=== PATIENT | female | born 1985 | race Two or more races ===

== ENCOUNTER 2020-05-29 12:58 | Inpatient (IN) | payer OTHER ==
[~2020-05-29] VITALS: Ht 165.1 cm; Wt 76.8 kg
[2020-05-29] MEDS ORDERED: NEWBORN KIT ONE (13:18)
[2020-05-29] MEDS ORDERED: MISOPROSTOL 200 MCG TABLET ONE (13:18)
[2020-05-29] MEDS ORDERED: LIDOCAINE 1%, 20ML ONE (13:18)
[2020-05-29] MEDS ORDERED: FENTANYL PF 100 MCG/2ML ONE ×2 (13:18→14:25)
[2020-05-29] MEDS ORDERED: OXYTOCIN 30U/ 0.9% NaCL 500ML 500 ML ONE ×2 (13:19→16:46)
[2020-05-29] MEDS: FENTANYL PF 100 MCG/2ML IVPush PRN ×2 (13:24→14:30)
[2020-05-29] MEDS ORDERED: D5%-LACTATED RINGERS 1,000 ML IV SCH (13:30)
[2020-05-29] MEDS ORDERED: TERBUTALINE 1 MG/ML, 1ML IVPush PRN (13:30)
[2020-05-29] MEDS ORDERED: METOCLOPRAMIDE 5 MG/ML, 2ML IVPush PRN (13:30)
[2020-05-29] MEDS ORDERED: TERBUTALINE 1 MG/ML, 1ML SQ PRN (13:30)
[2020-05-29] MEDS ORDERED: SODIUM CITRATE/CITRIC ACID 30 ML UDC PO PRN (13:30)
[2020-05-29] MEDS ORDERED: FENTANYL PF 100 MCG/2ML IV PRN (13:30)
[2020-05-29] MEDS ORDERED: ONDANSETRON 2MG/ML, 2ML IVPush PRN (13:30)
[2020-05-29] MEDS ORDERED: OXYTOCIN 30U/ 0.9% NaCL 500ML 500 ML IV ONE (13:30)
[2020-05-29] MEDS: LACTATED RINGERS 1,000 ML IV SCH ×2 (13:31→16:57)
[2020-05-29 13:33] LABS: MEAN CORPUSCULAR HEMOGLOBIN 31.4 pg (27.0-34.8); MEAN CORPUSCULAR HGB CONC 34.7 g/dL (32.4-35.8); MEAN PLATELET VOLUME 11.2 fL (7.4-10.4); PLATELET COUNT 179 x10^3/uL (130-400); RED BLOOD COUNT 4.29 x10^6/uL (3.82-5.3); RED CELL DISTRIBUTION WIDTH 13.3 % (9.6-15.2)
[2020-05-29 13:55] LABS: MD YES
[2020-05-29 13:57] LABS: BAND#(MANUAL) 0.48 x10^3/uL; BANDS%(MANUAL) 5 % (0-7); BASOS% (MANUAL) 1 % (0-1); LYMPH#(MANUAL) 1.06 x10^3/uL (1-3.4); LYMPHS% (MANUAL) 11 % (22-44); MONOS#(MANUAL) 0.29 x10^3/uL (0.3-2.7); MONOS% (MANUAL) 3 % (2-9); SEG#(MANUAL) 7.68 x10^3/uL (1.8-6.8); SEGS% (MANUAL) 80 % (42-75)
[2020-05-29 13:58] LABS: <PLATELET ESTIMATE> ADEQUATE; <PLT MORPHOLOGY> NORMAL PLT MORPH; <RBC MORPHOLOGY> NORMAL
[2020-05-29] MEDS ORDERED: NALOXONE 0.4 MG/ML, 1ML IVPush PRN (15:30)
[2020-05-29] MEDS ORDERED: LACTATED RINGERS 1,000 ML IVBOLUS PRN (15:30)
[2020-05-29] MEDS ORDERED: FENTANYL/BUPIV./NS/PF 250 ML EPIDCONT SCH (15:30)
[2020-05-29] MEDS ORDERED: LACTATED RINGERS 1,000 ML IV SCH (15:30)
[2020-05-29] MEDS ORDERED: EPHEDRINE 50 MG/ML, 1ML IVPush PRN (15:30)
[2020-05-29] MEDS ORDERED: IBUPROFEN 600 MG TABLET ONE (16:46)
[2020-05-29] MEDS ORDERED: SIMETHICONE 80 MG CHEW TAB PO PRN (17:00)
[2020-05-29] MEDS: OXYTOCIN 30U/ 0.9% NaCL 500ML 500 ML IV SCH (17:00)
[2020-05-29] MEDS ORDERED: HYDROcodone/APAP 5/325 TABLET PO PRN ×2 (17:00)
[2020-05-29] MEDS: IBUPROFEN 600 MG TABLET PO PRN ×2 (17:01→23:20)
[2020-05-29 18:15] VITALS: BP 110/65
[2020-05-29 19:29] VITALS: BP 107/67
[2020-05-29] MEDS: DOCUSATE 100 MG CAPSULE PO PRN (23:20)
[2020-05-29 23:25] VITALS: BP 106/70
[2020-05-30 01:02] LABS: BASOPHILS % (AUTO) 0 % (0-1); EOSINOPHILS % (AUTO) 0 % (1-7); LYMPHOCYTES % (AUTO) 11 % (22-44); MEAN CORPUSCULAR HEMOGLOBIN 31.4 pg (27.0-34.8); MEAN PLATELET VOLUME 11.2 fL (7.4-10.4); MONOCYTES % (AUTO) 6 % (2-9); NEUTROPHILS % (AUTO) 83 % (42-75); PLATELET COUNT 167 x10^3/uL (130-400)
[2020-05-30 01:22] LABS: MD SCAN
[2020-05-30] MEDS: OXYTOCIN 30U/ 0.9% NaCL 500ML 500 ML IV SCH ×3 (03:00→23:00)
[2020-05-30 07:50] VITALS: BP 100/64
[2020-05-30] MEDS: PRENATAL VIT/IRON/FA 1 EACH TABLET PO SCH (08:03)
[2020-05-30] MEDS: IBUPROFEN 600 MG TABLET PO PRN ×2 (08:03→17:12)
[2020-05-30] MEDS ORDERED: DIPH,PERTUSS(ACELL),TET VAC/PF NC IM-VACC ONE ×2 (11:39→12:00)
[2020-05-30 13:00] VITALS: BP 103/67
[2020-05-30 19:40] VITALS: BP 105/69
[2020-05-31 07:50] VITALS: BP 115/77
[2020-05-31] MEDS: IBUPROFEN 600 MG TABLET PO PRN (07:57)
[2020-05-31] MEDS: PRENATAL VIT/IRON/FA 1 EACH TABLET PO SCH (07:57)
[2020-05-31] MEDS: DOCUSATE 100 MG CAPSULE PO PRN (07:57)
== END 2020-05-31 16:01 | disposition home or self-care (01) | DRG 807 ==
LOC: LDIP 12:58 → 2NW 17:51
PROVIDERS: ADMIT Obstetrics & Gynecology; ATTEND Obstetrics & Gynecology
PROC: 10E0XZZ Delivery of Products of Conception, External Approach (ICD-10-PCS; principal; 2020-05-29)
PROC: 0KQM0ZZ Repair Perineum Muscle, Open Approach (ICD-10-PCS; 2020-05-29)
DX: O70.1 Second degree perineal laceration during delivery (principal); Z37.0 Single live birth; Z3A.38 38 weeks gestation of pregnancy; Z20.822 Contact with and (suspected) exposure to COVID-19
CPT/HCPCS: 36415; 85025; 86592; 86850; 86900; 87635; 90715; G0378; J3010; J2590; J7120